=== PATIENT | female | born 1945 | race Caucasian/White ===

== ENCOUNTER → 2024-02-20 07:30 | Outpatient (REF) | payer MEDICARE, BC, SELFPAY ==
[2024-02-20 09:01] LABS: % Basophils 0.9 % (0-2); % Eosinophils 2.9 % (0-6); % Lymphocytes 42.3 % (20.5-51.1); % Monocytes 7.7 % (1.7-9.3); % Neutrophils 46.2 % (42.2-75.2); Absolute Eosinophils 0.1 10^3/uL (0-0.7); Absolute Lymphocytes 1.5 10^3/uL (1.2-3.4); Absolute Monocytes 0.3 10^3/uL (0.1-0.6); Absolute Neutrophils 1.6 10^3/uL (1.4-6.5); Hematocrit 40.8 % (37.0-47.0); Hemoglobin 12.9 g/dL (12.0-16.0); Mean Corp Hgb Conc. 31.6 g/dL (33.0-37.0); Mean Corpuscular Hgb 29.6 pg (27.0-31.0); Mean Corpuscular Volume 93.6 fL (81.0-99.0); Mean Platelet Volume 9.9 fL (7.4-10.4); Nucleated Red Blood Cells % 0 %; Platelet Count 213 10^3/uL (130-400); Red Blood Cell Count 4.36 10^6/uL (4.20-5.40); Red Cell Dist. Width 13.6 % (11.5-14.5); White Blood Cell Count 3.5 10^3/uL (4.8-10.8)
[2024-02-20 10:00] LABS: ALT (SGPT) 25 U/L (0-35); AST (SGOT) 30 U/L (14-36); Albumin 4.7 g/dl (3.5-5.0); Alkaline Phosphatase 93 U/L (38-126); Amylase 134 U/L (30-110); Blood Urea Nitrogen 27 mg/dl (7-17); Calcium 9.7 mg/dl (8.4-10.2); Carbon Dioxide 25 mmol/L (22-30); Chloride 103 mmol/L (98-107); Glucose 89 mg/dl (70-99); HDL Cholesterol 89 mg/dl; LDL Cholesterol, Calculated 134 mg/dl; Lipase 156 U/L (23-300); Potassium 5.7 mmol/L (3.5-5.1); Sodium 141 mmol/L (135-145); Total Bilirubin 0.5 mg/dl (0.2-1.3); Total Cholesterol 244 mg/dl (50-199); Total Protein 7.2 g/dl (6.3-8.2); Triglyceride 107 mg/dl (10-149); Very Low Density Lipoprotein 21 mg/dl (0-30); eGFR 42.62
[2024-02-20 10:02] LABS: C-Reactive Protein < 5.00 mg/L (0.0-10.00)
[2024-02-20 10:07] LABS: Urine Albumin Trace (Neg - Trace); Urine Bilirubin Negative (Negative); Urine Character Clear (Clear); Urine Color Yellow; Urine Glucose Negative (Negative); Urine Ketone Negative (Negative); Urine Leukocyte Negative (Negative); Urine Nitrite Negative (Negative); Urine Occult Blood Negative (Negative); Urine Specific Gravity 1.015 (<1.030); Urine Urobilinogen Negative (Neg - 1+)
[2024-02-20 10:35] LABS: Erythrocyte Sed Rate 11 mm/hour (0-20)
== END ==
LOC: REG 07:30
PROVIDERS: ATTENDING PHYSICIAN Family Medicine
DX: K86.9 Disease of pancreas, unspecified (principal); K52.9 Noninfective gastroenteritis and colitis, unspecified; R25.2 Cramp and spasm; E78.00 Pure hypercholesterolemia, unspecified; R79.0 Abnormal level of blood mineral
CPT/HCPCS: 36415; 80053; 80061; 81003; 82150; 83690; 83735; 84443; 85025; 85652; 86140

== ENCOUNTER → 2024-03-11 09:08 | Outpatient (REF) | payer MEDICARE, BC, SELFPAY | LOC: HWRAD 09:08 | PROVIDERS: ATTENDING PHYSICIAN Family Medicine | DX: R74.8 Abnormal levels of other serum enzymes (principal) | CPT/HCPCS: 76700 ==

== ENCOUNTER → 2024-03-18 14:24 | Outpatient (REF) | payer MEDICARE, BC, SELFPAY | LOC: HWWDC 14:24 | PROVIDERS: ATTENDING PHYSICIAN Family Medicine | DX: Z12.39 Encounter for other screening for malignant neoplasm of breast (principal) | CPT/HCPCS: 77063; 77067 ==

== ENCOUNTER → 2024-03-27 07:36 | Outpatient (REF) | payer MEDICARE, BC, SELFPAY | LOC: HWRAD 07:36 | PROVIDERS: ATTENDING PHYSICIAN Family Medicine | DX: M85.80 Other specified disorders of bone density and structure, unspecified site (principal); M85.89 Other specified disorders of bone density and structure, multiple sites | CPT/HCPCS: 77080 ==

== ENCOUNTER → 2024-04-28 07:13 | Outpatient (REF) | payer MEDICARE, BC, SELFPAY | LOC: PAVMRI 07:13 | PROVIDERS: ATTENDING PHYSICIAN Family Medicine | DX: K86.9 Disease of pancreas, unspecified (principal) | CPT/HCPCS: 74183; A9575 ==

== ENCOUNTER 2024-06-04 13:40 | Emergency (ER) | payer MEDICARE, BC, SELFPAY ==
[2024-06-04 13:42] VITALS: BP 178/88
[2024-06-04 14:08] LABS: % Basophils 0.5 % (0-2); % Eosinophils 1.1 % (0-6); % Immature Granulocytes 0.2 % (0-0.5); % Lymphocytes 40.9 % (20.5-51.1); % Monocytes 7.2 % (1.7-9.3); % Neutrophils 50.1 % (42.2-75.2); Absolute Eosinophils 0.1 10^3/uL (0-0.7); Absolute Lymphocytes 2.3 10^3/uL (1.2-3.4); Absolute Monocytes 0.4 10^3/uL (0.1-0.6); Absolute Neutrophils 2.8 10^3/uL (1.4-6.5); Hematocrit 40.8 % (37.0-47.0); Mean Corp Hgb Conc. 34.3 g/dL (33.0-37.0); Mean Corpuscular Hgb 30.1 pg (27.0-31.0); Mean Corpuscular Volume 87.7 fL (81.0-99.0); Mean Platelet Volume 9.7 fL (7.4-10.4); Nucleated Red Blood Cells % 0 %; Platelet Count 229 10^3/uL (130-400); Red Blood Cell Count 4.65 10^6/uL (4.20-5.40); Red Cell Dist. Width 12.8 % (11.5-14.5); White Blood Cell Count 5.6 10^3/uL (4.8-10.8)
[2024-06-04 14:41] VITALS: BP 164/79
[2024-06-04 14:44] VITALS: BP 174/95
[2024-06-04 14:47] LABS: ALT (SGPT) 21 U/L (0-35); AST (SGOT) 27 U/L (14-36); Alkaline Phosphatase 118 U/L (38-126); Blood Urea Nitrogen 25 mg/dl (7-17); Calcium 10.6 mg/dl (8.4-10.2); Carbon Dioxide 23 mmol/L (22-30); Chloride 98 mmol/L (98-107); Glucose 109 mg/dl (70-99); Potassium 4.8 mmol/L (3.5-5.1); Sodium 133 mmol/L (135-145); Total Bilirubin 0.8 mg/dl (0.2-1.3); eGFR 46.91
[2024-06-04 15:00] VITALS: BP 163/68
[2024-06-04] MEDS: NSS 500 IV (15:30)
[2024-06-04 15:48] LABS: D-Dimer < 0.27 ug/mlFEU (0.00-0.50)
[2024-06-04 15:50] LABS: COVID-19 Antigen Negative (Negative)
[2024-06-04 16:00] VITALS: BP 128/61
[2024-06-04 16:00] LABS: Troponin I < 0.012 ng/ml
[2024-06-04 16:19] LABS: TSH Reflex To Free T4 0.79 uIU/ml (0.47-4.68)
[2024-06-04 17:00] VITALS: BP 133/64
--- NOTE | 2024-06-04 17:52 | ED.GENMED ---
History of Present Illness
General
Chief Complaint: Dizziness
Source: patient
Exam Limitations: none
Time Seen by Provider: 06/04/24 14:19
Nursing documentation reviewed up to this point in time: agreed with
History of Present Illness
History of Present Illness:
PT IS A 78 Y/O F with h/o HTN, colitis
here with feeling weak for a few days
says that ovre the weekend about 5 days ago she started feeling not well, nasal congestion, presure i her face
she started taking her vitals and realized her BP was a little high and her hr was 110s, as high as 118
she has had occasional chills but no fever
she saw her PCP 2 days ago for these sypmtoms of feeling lightheaded, tired, nauseated, sinus congestion
the PCP told her to take an OTC nasal spray (not afrin) and she thought it was helping but she still didn't feel well
her was a patient here after a fall this am and she came with him and while here just wasn't feeling well. she decided to check herself in
she has not had any chestp ain, shortness of breath, headache (just facial pressure and nasal congestion), fever, leg swelilng, syncope
pt has not eaten well today
Past History
Past History
ED Past Medical History: HTN and Other (Vertigo, colitis); Negative Asthma, Hypercholesterolemia or NIDDM
ED Past Surgical History: Cholecystectomy and Other (ENT surgery)
Social History
Tobacco: Non-smoker
Alcohol: Daily (Beer one daily)
Drug: None
Personal:
Living: with family
Family History
Family History: Negative Diabetes, Hypertension, Early CAD, Asthma or Cancer
Review of Systems
Review of Systems
Allergies reviewed?: Yes
All Other Systems: Not applicable
Phy Exam
Physical Exam
Physical Exam:
GENERAL: Alert , in no apparent distress
face: no swelling
mil dtendneress to percussion of sinuses
EYE: pupils equal and reactive
NECK: Supple
ENT: o/p clr, mmm. nose turbinates not swollen
CARDIAC: Regular rate and rhythm . no edema
LUNGS: Clear breath sounds bilaterally, no acute respiratory distress, no wheezes/rales/rhonchi
ABDOMEN: Soft, without focal tenderness, no r/g, no cvat, normal bowel sounds
NEUROLOGICAL: Alert and oriented, no focal neuro deficits
SKIN: Warm and dry, skin intact.
MUSCULOSKELETAL: No edema, well perfused. neg delbert's sign
PSYCH: Normal and appropriate interaction.
Course
Orders/Labs/Results
Orders:
Orders
06/04/24 13:42
Electrocardiogram (*1) Urgent
Reason for Study: Vertigo / Dizzy
EKG- Treatment ONCE
06/04/24 13:59
Complete Blood Count/With Diff Urgent
Comprehensive Metabolic Panel Urgent
06/04/24 14:56
Cardiac Monitoring- Treatment ONCE
0.9% Sodium Chloride 500 ml [Nss] 500 ml IV BOLUS
06/04/24 15:14
COVID-19 Antigen Urgent
Source: Nasal Swab
D-Dimer Urgent
TSH Reflex To Free T4 Urgent
Influenza A+B Rapid Molecular Urgent
JANIS Source: Nasal Swab
Specimen Description:
06/04/24 15:26
Troponin I Urgent
Abnormal Lab Results
06/04/24
13:59
Sodium 133 L mmol/L
(135-145)
BUN 25 H mg/dl
(7-17)
Creatinine 1.2 H mg/dL
(0.6-1.0)
Glucose 109 H mg/dl
(70-99)
Calcium 10.6 H mg/dl
(8.4-10.2)
06/04/24 13:59
06/04/24 13:59
Vital Signs
Initial and Last Documented VS:
Initial Vital Signs
Temp Pulse Resp BP Pulse Ox
36.8 C 100 16 178/88 98
06/04/24 13:42 06/04/24 13:42 06/04/24 13:42 06/04/24 13:42 06/04/24 13:42
Last Documented Vital Signs
Temp Pulse Resp BP Pulse Ox
36.2 C 90 14 133/64 100
06/04/24 14:35 06/04/24 17:00 06/04/24 17:00 06/04/24 17:00 06/04/24 15:15
MDM/Problems Addressed
Differential Diagnosis Includes:
sinusitis, near syncope, dehydration, covid, flu
MDM/Problems Addressed:
78 y/o F with h/o htn
here with facila pressure, not feeling well, lighhteaded, fatigue for a few days
worse while she was a visitor while her was in the ED after a fall
she has not had a fever
no syncope or CP
orthostatic VS were neg (her bp went up but HR did go up about 10 and she did feel lightheaded)
other than some facial pressure she had no findings on exam
ekg nonischemic
trop neg
wbc normal
sodium 133
bun/cr baseline
given NSS
she feel sbetter, able to walk unasssisted without feleing lightheaded
covid/flu neg
discussed holding outpatient abx unless worse in a few days
*Critical Care Note
Total Time (30-74mins, 75-104mins- exclusive of procedures): Not Applicable
ED Attending Note
-
Portions of this chart may have been created with voice recognition software.� Occasional wrong word or��sound alike� substitutions may have occurred due to the inherent limitations of voice recognition software.
Discharge Plan
Departure
Patient Disposition: Home (Routine Discharge)
Date of Disposition: 06/04/24
Time of Disposition: 17:49
Patient with high blood pressure during this ER visit?: No
Condition: Fair
Covid-19: Not Applicable
Discharge Problem:
Sinusitis
Instructions: Sinusitis in adults - ED discharge instructions
Prescriptions:
New
amoxicillin 875 mg tablet
875 mg PO BID Qty: 14 0RF
No Action
lisinopril 10 MG tablet
20 mg PO DAILY
acetaminophen [Tylenol Arthritis Pain] 650 MG tablet extended release
1,300 mg PO DAILY
meclizine 25 MG tablet
25 mg PO Q8HPRN PRN (Reason: nausea or vertigo) Qty: 15 0RF
amoxicillin-pot clavulanate 1 TABLET tablet
1 tab PO Q12 Qty: 10 0RF
ondansetron HCl 4 mg tablet
4 mg PO Q8H PRN (Reason: nausea and vomiting) 4 Days Qty: 7 0RF
Referrals:
Wilbert Novoa, DO [Family Provider] -
Activity Restrictions/Additional Instructions:
YOUR SYMPTOMS ARE PROBABLY VIRAL SINUSITIS
TAKE TYLENOL FOR HEADACHE
USE NASAL SPRAY NEEDED
USE YOUR ALLERGY MEDICATION WELL
IF YOU STILL HAVE SYMPTOMS IN 3-4 DAYS, YOU CAN START THE ANTIBIOTIC BUT PLEASE ONLY DO SO IF YOU ARE NOT IMPROVING WITH OTHER TREATMENT
RETUIRN FOR PASSING OUT, FEVER, FACIAL SWELLING, ,ETC
Interventions
Interventions:
*Risk Screen - Suicide Last Done: 06/04/24 13:42
*General Assessment Last Done: 06/04/24 14:35
*Neglect/Abuse Screening Last Done: 06/04/24 13:42
ED- Neurological Assessment Last Done: 06/04/24 14:35
Discharge Date and Time
Print Language: BENINESE
== END 2024-06-04 18:16 | disposition home or self-care (01) ==
LOC: EMR 13:40
PROVIDERS: Emergency Medicine; Physician Assistant; EMERGENCY PHYSICIAN Student in an Organized Health Care Education/Training Program; FAMILY PHYSICIAN Family Medicine
DX: J32.9 Chronic sinusitis, unspecified (principal); I10 Essential (primary) hypertension; Z82.49 Family history of ischemic heart disease and other diseases of the circulatory system; Z90.49 Acquired absence of other specified parts of digestive tract
CPT/HCPCS: 99283; 96360; 80053; 84443; 84484; 85025; 85379; 87502; 87811; 93005

== ENCOUNTER → 2024-06-26 08:40 | Outpatient (REF) | payer MEDICARE, BC, SELFPAY | LOC: WDC 08:40 | PROVIDERS: ATTENDING PHYSICIAN Family Medicine | DX: R92.30 Dense breasts, unspecified (principal) | CPT/HCPCS: 76641 ==

== ENCOUNTER → 2024-09-14 11:59 | Outpatient (REF) | payer MEDICARE, BC, SELFPAY | LOC: RCS 11:59 | PROVIDERS: ATTENDING PHYSICIAN Internal Medicine Cardiovascular Disease; FAMILY PHYSICIAN Family Medicine | DX: R07.9 Chest pain, unspecified (principal) | CPT/HCPCS: 78452; 93017; A9500; J2785 ==

== ENCOUNTER → 2024-09-22 10:00 | Outpatient (REF) | payer MEDICARE, BC, SELFPAY | LOC: RCS 10:00 | PROVIDERS: ATTENDING PHYSICIAN Internal Medicine Cardiovascular Disease; FAMILY PHYSICIAN Family Medicine | DX: R06.02 Shortness of breath (principal) | CPT/HCPCS: 93306 ==

== ENCOUNTER → 2025-03-01 08:20 | Outpatient (REF) | payer MEDICARE, BC, SELFPAY | LOC: MRI 3T 08:20 | PROVIDERS: ATTENDING PHYSICIAN Internal Medicine Gastroenterology; FAMILY PHYSICIAN Family Medicine | DX: K86.2 Cyst of pancreas (principal) | CPT/HCPCS: 74183; A9575 ==